=== PATIENT | female | born 1965 | race American Indian/Alaskan Native ===

== ENCOUNTER 2018-05-11 18:40 | Emergency (ER) | payer OTHER ==
[2018-05-11 18:54] VITALS: BP 117/81; PULSE 73; RESP 18; TEMP 98.1; O2SAT 100
--- NOTE | 2018-05-11 20:19 | C.PDOC ---
History Of Present Illness Patient is a 53 year old female who presents to the ED for evaluation of pain to the left ankle that began today at work. Patient states that she is unsure of any trauma or twisting of her ankle, but does walk a lot as a teacher. Patient denies any weakness of ankle. Time Seen by Provider: 05/11/18 19:24 Chief Complaint (Nursing): Lower Extremity Problem/Injury History Per: Patient History/Exam Limitations: no limitations Onset/Duration Of Symptoms: Hrs Current Symptoms Are (Timing): Still Present Recent travel outside of the [place]: No Additional History Per: Patient Past Medical History Reviewed: Historical Data, Nursing Documentation, Vital Signs Vital Signs: Last Vital Signs Temp 98.1 F 05/11/18 18:48 Pulse 73 05/11/18 18:48 Resp 18 05/11/18 18:48 BP 117/81 05/11/18 18:48 Pulse Ox 100 05/11/18 18:48 - Medical History PMH: Hypothyroidism Surgical History: Tonsillectomy Family History: States: No Known Family Hx - Social History Hx Alcohol Use: No Hx Substance Use: No - Immunization History Hx Tetanus Toxoid Vaccination: No Hx Influenza Vaccination: No Hx Pneumococcal Vaccination: No Review Of Systems Musculoskeletal: Positive for: Foot Pain (left ankle pain) Physical Exam - Physical Exam Appears: Non-toxic, No Acute Distress Skin: Normal Color, Warm, Dry Head: Atraumatic, Normacephalic Extremity: Normal ROM, Tenderness (tenderness to lateral and posterior aspect of left ankle. normal motor tone. old surgical scars bilateral first MCP. ), Capillary Refill (less than 2 seconds) Pulses: Left Dorsalis Pedis: Normal, Right Dorsalis Pedis: Normal Neurological/Psych: Oriented x3 Gait: Steady ED Course And Treatment O2 Sat by Pulse Oximetry: 100 (on RA) Pulse Ox Interpretation: Normal Progress Note: Plan: Motrin 600mg PO. Xray Lft Ankle. Xray showed no fracture or dislocation. Travis wrap applied by nurse and patient advised to follow up with podiatry Disposition Counseled Patient/Family Regarding: Diagnosis, Need For Followup, Rx Given - Disposition Referrals: Wilber Burdick MD [Staff Provider] - Disposition: HOME/ ROUTINE Disposition Time: 20:16 Condition: STABLE Additional Instructions: wear an TRAVIS wrap for support Take motrin or advil for pain Return to ER if worse Instructions: Ankle Sprain (DC) Forms: [facility] (Iranian), Work Excuse - Clinical Impression Clinical Impression: Left ankle sprain - PA / [employer] / Resident Statement MD/DO has examined the patient and agrees with the treatment plan. - Scribe Statement The provider has reviewed the documentation as recorded by the Scribe Karina Simon
--- NOTE | 2018-05-12 10:34 | RAD ---
PROCEDURE: Left Ankle Radiographs. HISTORY: pain, twisting injury COMPARISON: None available. FINDINGS: BONES: No acute displaced fracture. JOINTS: No dislocation. SOFT TISSUES: Unremarkable. No evidence of radiopaque foreign body. OTHER FINDINGS: None. IMPRESSION: No acute displaced fracture, dislocation, or significant joint effusion identified. If symptoms persist or if there is clinical concern, x-ray follow-up in 7-10 days should be considered.
== END 2018-05-11 21:02 | disposition home or self-care (01) ==
LOC: C.ER 18:40
DX: S93.402A Sprain of unspecified ligament of left ankle, initial encounter (principal); X58.XXXA Exposure to other specified factors, initial encounter